=== PATIENT | male | born 1985 ===

== ENCOUNTER 2019-09-03 17:22 | Inpatient (IN) ==
[2019-09-03] MEDS ORDERED: HYDROmorphone 2 MG/1 ML VIAL IV STA ×2 (17:46→18:30)
[2019-09-03] MEDS ORDERED: ONDANSETRON 4 MG/2 ML VIAL ONE ×2 (17:46→21:42)
[2019-09-03] MEDS ORDERED: DIPHTHERIA/TETANUS ADULT VACCINE 0.5 ML SYRINGE IM ONE (17:46)
[2019-09-03 17:56] LABS: Basophils % 0.3 % (0.0-0.8); Eosinophils # 0.2 10*3/uL (0.0-0.87); Eosinophils % 1.5 % (0.00-10.9); Hematocrit 42.9 VOL% (42.0-52.0); Hemoglobin 14.2 GM/DL (14.0-18.0); Immature Granulocytes % 0.4 %; Immature Granulocytes Absolute 0.06 #; Lymphocytes # 2.1 10*3/uL (1.4-4.0); Lymphocytes % 14.3 % (21.2-54.2); Mean Corpuscular HGB Conc 33.1 GM/DL (32-36); Mean Corpuscular Volume 90.5 FL (87-102); Monocytes % 5.5 % (1.7-12.7); Platelet Count 258 T/CUMM (130-400); Red Blood Count 4.74 MC/CUMM (3.8-5.5); Red Cell Distribution Width 12.5 % (9.3-17.3); White Blood Count 14.6 T/CUMM (4-12)
[2019-09-03] MEDS ORDERED: ONDANSETRON 4 MG/2 ML VIAL IV STA (17:58)
[2019-09-03 18:13] LABS: Alanine Aminotransferase 61 U/L (16-61); Albumin 3.8 G/DL (3.4-5.0); Alkaline Phosphatase 93 U/L (45-117); Amylase 34 U/L (25-115); Aspartate Amino Transferase 39 U/L (0-37); Blood Urea Nitrogen 21 MG/DL (7-18); Calcium 9.1 MG/DL (8.5-10.1); Estimated Glom Filtration Rate 122 ML/MIN; Glucose 245 MG/DL (74-106); Osmolality,Calculated 280.1 MOS/KG (273-304); Total Protein 7.4 G/DL (6.4-8.3)
[2019-09-03 18:15] LABS: INR 0.9; Partial Thromboplastin Time 23.1 SECS (20.8-36.0)
[2019-09-03] MEDS ORDERED: GENTAMICIN INJ 120 MG in SODIUM CHLORIDE 0.9% 100 ML IV STA (18:26)
[2019-09-03] MEDS ORDERED: GENTAMICIN 80 MG/2 ML VIAL ONE (18:50)
[2019-09-03] MEDS: LACTATED RINGERS 1,000 ML IV SCH ×2 (19:25→20:30)
[2019-09-03] MEDS ORDERED: BACITRACIN OINT 0.9 GM PACK TOP ONE (20:53)
[2019-09-03] MEDS ORDERED: HYDROmorphone 2 MG/1 ML VIAL ONE (21:10)
[2019-09-03] MEDS ORDERED: propofoL 200 MG/20 ML VIAL IV ONE (21:41)
[2019-09-03] MEDS ORDERED: SEVOFLURANE 1 UNIT/15 MINUTE INH ONE (21:42)
[2019-09-03] MEDS ORDERED: SUCCINYLCHOLINE 200 MG/10 ML VIAL ONE (21:42)
[2019-09-03] MEDS ORDERED: LACTATED RINGERS 1,000 ML IV ONE (21:42)
[2019-09-03] MEDS ORDERED: LIDOCAINE 2% 5 ML VIAL ONE (21:42)
[2019-09-03] MEDS ORDERED: MIDAZOLAM 2 MG/2 ML VIAL ONE (21:42)
[2019-09-03] MEDS ORDERED: ROCURONIUM 100 MG/10 ML VIAL IV ONE (21:42)
[2019-09-03] MEDS ORDERED: fentaNYL 250 MCG/5 ML VIAL ONE ×2 (21:42)
[2019-09-03] MEDS ORDERED: ALBUTEROL INHALER 8 GM INH ONE (21:43)
[2019-09-03] MEDS ORDERED: diphenhydrAMINE CAP 25 MG CAPSULE PO PRN (21:46)
[2019-09-03] MEDS ORDERED: MAGNESIUM HYDROXIDE SUSP 30 ML UDCUP PO PRN (21:46)
[2019-09-03] MEDS ORDERED: MORPHINE 4 MG/1 ML VIAL IV PRN (21:46)
[2019-09-03] MEDS: MORPHINE 4 MG/1 ML VIAL IV PRN (23:52)
[2019-09-04] MEDS: KETOROLAC 30 MG/1 ML VIAL IV PRN ×2 (01:24→13:44)
[2019-09-04] MEDS: ceFAZolin 2,000 MG in PREMIX 1 EACH IV SCH ×3 (02:47→20:58)
[2019-09-04] MEDS: LACTATED RINGERS 1,000 ML IV SCH (02:54)
[2019-09-04] MEDS ORDERED: GENTAMICIN INJ 120 MG in PREMIX 1 EACH IV SCH (03:00)
[2019-09-04 06:07] LABS: Basophils % 0.2 % (0.0-0.8); Eosinophils % 0.2 % (0.00-10.9); Hematocrit 36.9 VOL% (42.0-52.0); Hemoglobin 11.8 GM/DL (14.0-18.0); Immature Granulocytes % 0.5 %; Immature Granulocytes Absolute 0.09 #; Lymphocytes # 2.2 10*3/uL (1.4-4.0); Lymphocytes % 12.9 % (21.2-54.2); Mean Corpuscular Volume 93.2 FL (87-102); Mean Platelet Volume 10.2 FL (9.6-12.0); Monocytes % 6.4 % (1.7-12.7); Neutrophils % 79.8 % (38.7-73.9); Platelet Count 230 T/CUMM (130-400); Red Blood Count 3.96 MC/CUMM (3.8-5.5); Red Cell Distribution Width 12.4 % (9.3-17.3)
[2019-09-04 06:30] LABS: Calcium 8.2 MG/DL (8.5-10.1)
[2019-09-04] MEDS: MORPHINE 4 MG/1 ML VIAL IV PRN (06:42)
[2019-09-04] MEDS ORDERED: DEXTROSE 10% 250 ML BAG IV PRN (08:28)
[2019-09-04] MEDS ORDERED: GLUCAGON 1 MG VIAL IM PRN (08:28)
[2019-09-04] MEDS ORDERED: GENTAMICIN INJ 360 MG in SODIUM CHLORIDE 0.9% 100 ML IV ONE (10:00)
[2019-09-04] MEDS: INSULIN LISPRO 100 UNIT/ML SUBCUT SCH ×3 (13:41→20:51)
[2019-09-04] MEDS: HYDROmorphone 2 MG/1 ML VIAL IV PRN ×3 (15:07→20:50)
[2019-09-04] MEDS: FONDAPARINUX 2.5 MG/0.5 ML SYRINGE SUBCUT SCH (15:32)
[2019-09-05] MEDS: HYDROmorphone 2 MG/1 ML VIAL IV PRN ×3 (00:21→08:17)
[2019-09-05] MEDS: ceFAZolin 2,000 MG in PREMIX 1 EACH IV SCH ×3 (05:00→21:19)
[2019-09-05] MEDS ORDERED: NALOXONE 0.4 MG/ML VIAL IV PRN ×2 (08:10→10:11)
[2019-09-05] MEDS: INSULIN LISPRO 100 UNIT/ML SUBCUT SCH ×4 (08:24→21:19)
[2019-09-05] MEDS ORDERED: MORPHINE PCA 30 MG/30 ML SYRINGE IV SCH (08:30)
[2019-09-05] MEDS ORDERED: DOCUSATE SODIUM 100 MG CAPSULE PO PRN (09:27)
[2019-09-05] MEDS: HYDROmorphone PCA 30 MG/30 ML SYRINGE IV SCH (10:44)
[2019-09-05] MEDS: GENTAMICIN INJ 480 MG in SODIUM CHLORIDE 0.9% 100 ML IV SCH (12:17)
[2019-09-05] MEDS: FONDAPARINUX 2.5 MG/0.5 ML SYRINGE SUBCUT SCH (16:50)
[2019-09-06] MEDS: LACTATED RINGERS 1,000 ML IV SCH ×4 (00:55→15:49)
[2019-09-06] MEDS: ceFAZolin 2,000 MG in PREMIX 1 EACH IV SCH ×2 (05:12→18:18)
[2019-09-06] MEDS ORDERED: ROPIVACAINE 0.5% 30 ML VIAL ONE (08:18)
[2019-09-06] MEDS: INSULIN LISPRO 100 UNIT/ML SUBCUT SCH ×4 (09:54→21:33)
[2019-09-06] MEDS: PANTOPRAZOLE 40 MG TABLET PO SCH (09:56)
[2019-09-06] MEDS ORDERED: LIDOCAINE 2% 5 ML VIAL ONE (09:57)
[2019-09-06] MEDS ORDERED: fentaNYL 100 MCG/2 ML VIAL ONE (09:57)
[2019-09-06] MEDS ORDERED: propofoL 200 MG/20 ML VIAL IV ONE (09:57)
[2019-09-06] MEDS ORDERED: DESFLURANE 1 UNIT/15 MINUTE INH ONE (09:57)
[2019-09-06] MEDS ORDERED: GLYCOPYRROLATE 0.4 MG/2 ML VIAL ONE (09:58)
[2019-09-06] MEDS ORDERED: MIDAZOLAM 2 MG/2 ML VIAL ONE (09:58)
[2019-09-06] MEDS ORDERED: NEOSTIGMINE 10 MG/10 ML VIAL ONE (09:58)
[2019-09-06] MEDS ORDERED: LACTATED RINGERS 1,000 ML IV ONE (09:58)
[2019-09-06] MEDS ORDERED: ONDANSETRON 4 MG/2 ML VIAL ONE (09:58)
[2019-09-06] MEDS ORDERED: SUCCINYLCHOLINE 200 MG/10 ML VIAL ONE (09:58)
[2019-09-06] MEDS ORDERED: ROCURONIUM 100 MG/10 ML VIAL IV ONE (09:58)
[2019-09-06] MEDS ORDERED: LABETALOL 20 MG/4 ML SYRINGE IV ONE (10:08)
[2019-09-06] MEDS: HYDROmorphone PCA 30 MG/30 ML SYRINGE IV SCH (15:49)
[2019-09-06] MEDS: GENTAMICIN INJ 480 MG in SODIUM CHLORIDE 0.9% 100 ML IV SCH (18:18)
[2019-09-06] MEDS: FONDAPARINUX 2.5 MG/0.5 ML SYRINGE SUBCUT SCH (21:34)
[2019-09-07] MEDS: ceFAZolin 2,000 MG in PREMIX 1 EACH IV SCH ×3 (02:59→17:34)
[2019-09-07 05:33] LABS: Basophils # 0.1 10*3/uL (0.0-0.2); Basophils % 0.3 % (0.0-0.8); Eosinophils # 0.2 10*3/uL (0.0-0.87); Eosinophils % 1.2 % (0.00-10.9); Hematocrit 33.8 VOL% (42.0-52.0); Immature Granulocytes % 0.6 %; Immature Granulocytes Absolute 0.11 #; Lymphocytes # 2.6 10*3/uL (1.4-4.0); Lymphocytes % 14.9 % (21.2-54.2); Mean Corpuscular HGB Conc 32.5 GM/DL (32-36); Mean Corpuscular Volume 91.4 FL (87-102); Monocytes % 10.8 % (1.7-12.7); Neutrophils % 72.2 % (38.7-73.9); Platelet Count 352 T/CUMM (130-400); Red Cell Distribution Width 12.5 % (9.3-17.3); White Blood Count 17.1 T/CUMM (4-12)
[2019-09-07 05:53] LABS: Calcium 9.5 MG/DL (8.5-10.1); Osmolality,Calculated 264.8 MOS/KG (273-304)
[2019-09-07] MEDS: PANTOPRAZOLE 40 MG TABLET PO SCH (08:19)
[2019-09-07] MEDS: INSULIN LISPRO 100 UNIT/ML SUBCUT SCH ×4 (08:20→21:13)
[2019-09-07] MEDS ORDERED: INSULIN GLARGINE 100 UNIT/ML SUBCUT SCH (09:30)
[2019-09-07] MEDS: LACTATED RINGERS 1,000 ML IV SCH (12:49)
[2019-09-07] MEDS: GENTAMICIN INJ 480 MG in SODIUM CHLORIDE 0.9% 100 ML IV SCH (16:27)
[2019-09-07] MEDS: HYDROmorphone PCA 30 MG/30 ML SYRINGE IV SCH (16:35)
[2019-09-07] MEDS: FONDAPARINUX 2.5 MG/0.5 ML SYRINGE SUBCUT SCH (21:13)
[2019-09-08] MEDS: ceFAZolin 2,000 MG in PREMIX 1 EACH IV SCH ×3 (01:47→18:52)
[2019-09-08 04:53] LABS: Calcium 9.2 MG/DL (8.5-10.1); Osmolality,Calculated 269.5 MOS/KG (273-304)
[2019-09-08 05:09] LABS: Basophils % 0.3 % (0.0-0.8); Eosinophils # 0.3 10*3/uL (0.0-0.87); Eosinophils % 2.8 % (0.00-10.9); Hematocrit 32.7 VOL% (42.0-52.0); Hemoglobin 10.4 GM/DL (14.0-18.0); Immature Granulocytes % 0.7 %; Immature Granulocytes Absolute 0.08 #; Lymphocytes # 1.8 10*3/uL (1.4-4.0); Lymphocytes % 14.2 % (21.2-54.2); Mean Corpuscular HGB Conc 31.8 GM/DL (32-36); Mean Corpuscular Volume 92.6 FL (87-102); Mean Platelet Volume 9.6 FL (9.6-12.0); Monocytes % 10.6 % (1.7-12.7); NRBC # 0.02 10*3/uL; Neutrophils % 71.4 % (38.7-73.9); Platelet Count 395 T/CUMM (130-400); Red Blood Count 3.53 MC/CUMM (3.8-5.5); Red Cell Distribution Width 12.5 % (9.3-17.3); White Blood Count 12.3 T/CUMM (4-12)
[2019-09-08] MEDS ORDERED: INSULIN GLARGINE 100 UNIT/ML SUBCUT SCH (07:38)
[2019-09-08] MEDS: metFORMIN 500 MG TABLET PO SCH (09:17)
[2019-09-08] MEDS: PANTOPRAZOLE 40 MG TABLET PO SCH (09:18)
[2019-09-08] MEDS: INSULIN LISPRO 100 UNIT/ML SUBCUT SCH ×4 (09:20→20:19)
[2019-09-08] MEDS: GENTAMICIN INJ 480 MG in SODIUM CHLORIDE 0.9% 100 ML IV SCH ×2 (17:47→18:48)
[2019-09-08] MEDS: HYDROmorphone 2 MG/1 ML VIAL IV PRN ×2 (19:41→22:29)
[2019-09-08] MEDS: FONDAPARINUX 2.5 MG/0.5 ML SYRINGE SUBCUT SCH (20:19)
[2019-09-09] MEDS: HYDROmorphone 2 MG/1 ML VIAL IV PRN ×10 (00:42→22:19)
[2019-09-09] MEDS: ceFAZolin 2,000 MG in PREMIX 1 EACH IV SCH ×3 (03:32→18:18)
[2019-09-09 05:16] LABS: Basophils % 0.3 % (0.0-0.8); Eosinophils # 0.3 10*3/uL (0.0-0.87); Eosinophils % 2.6 % (0.00-10.9); Hematocrit 33.4 VOL% (42.0-52.0); Hemoglobin 10.7 GM/DL (14.0-18.0); Immature Granulocytes % 0.4 %; Immature Granulocytes Absolute 0.04 #; Lymphocytes # 1.7 10*3/uL (1.4-4.0); Lymphocytes % 15.7 % (21.2-54.2); Mean Corpuscular Volume 92.5 FL (87-102); Mean Platelet Volume 9.3 FL (9.6-12.0); Monocytes % 10.4 % (1.7-12.7); NRBC # 0.02 10*3/uL; Neutrophils % 70.6 % (38.7-73.9); Platelet Count 459 T/CUMM (130-400); Red Blood Count 3.61 MC/CUMM (3.8-5.5); Red Cell Distribution Width 12.2 % (9.3-17.3); White Blood Count 10.9 T/CUMM (4-12)
[2019-09-09 05:42] LABS: Calcium 9.2 MG/DL (8.5-10.1); Osmolality,Calculated 272.4 MOS/KG (273-304)
[2019-09-09] MEDS: INSULIN LISPRO 100 UNIT/ML SUBCUT SCH ×4 (08:32→20:15)
[2019-09-09] MEDS: metFORMIN 500 MG TABLET PO SCH (08:32)
[2019-09-09] MEDS: INSULIN GLARGINE 100 UNIT/ML SUBCUT SCH (09:03)
[2019-09-09] MEDS: POLYETHYLENE GLYCOL POWDER 17 GM PACK PO SCH (09:06)
[2019-09-09] MEDS: PANTOPRAZOLE 40 MG TABLET PO SCH (09:06)
[2019-09-09] MEDS ORDERED: ONDANSETRON 4 MG/2 ML VIAL IV PRN (09:39)
[2019-09-09] MEDS: GENTAMICIN INJ 480 MG in SODIUM CHLORIDE 0.9% 100 ML IV SCH (17:22)
[2019-09-09] MEDS: FONDAPARINUX 2.5 MG/0.5 ML SYRINGE SUBCUT SCH (20:16)
[2019-09-10] MEDS: HYDROmorphone 2 MG/1 ML VIAL IV PRN ×8 (00:40→23:56)
[2019-09-10] MEDS: LACTATED RINGERS 1,000 ML IV SCH ×2 (01:07→10:32)
[2019-09-10] MEDS: ceFAZolin 2,000 MG in PREMIX 1 EACH IV SCH ×3 (02:54→17:47)
[2019-09-10 05:38] LABS: Basophils % 0.4 % (0.0-0.8); Eosinophils # 0.3 10*3/uL (0.0-0.87); Eosinophils % 2.9 % (0.00-10.9); Hematocrit 32.1 VOL% (42.0-52.0); Hemoglobin 10.5 GM/DL (14.0-18.0); Immature Granulocytes % 0.5 %; Immature Granulocytes Absolute 0.06 #; Lymphocytes # 1.7 10*3/uL (1.4-4.0); Lymphocytes % 15.4 % (21.2-54.2); Mean Corpuscular HGB Conc 32.7 GM/DL (32-36); Mean Corpuscular Volume 90.7 FL (87-102); Mean Platelet Volume 9.2 FL (9.6-12.0); Neutrophils % 70.8 % (38.7-73.9); Platelet Count 507 T/CUMM (130-400); Red Blood Count 3.54 MC/CUMM (3.8-5.5); Red Cell Distribution Width 12.1 % (9.3-17.3); White Blood Count 10.9 T/CUMM (4-12)
[2019-09-10 05:51] LABS: Calcium 9.1 MG/DL (8.5-10.1); Osmolality,Calculated 272.4 MOS/KG (273-304)
[2019-09-10] MEDS: metFORMIN 500 MG TABLET PO SCH ×2 (07:35→17:08)
[2019-09-10] MEDS: INSULIN LISPRO 100 UNIT/ML SUBCUT SCH ×4 (07:35→21:46)
[2019-09-10] MEDS ORDERED: SILVER SULFADIAZINE 1% CREAM 400 GM JAR TOP ONE (07:59)
[2019-09-10] MEDS: INSULIN GLARGINE 100 UNIT/ML SUBCUT SCH (08:19)
[2019-09-10] MEDS: PANTOPRAZOLE 40 MG TABLET PO SCH (08:19)
[2019-09-10] MEDS: POLYETHYLENE GLYCOL POWDER 17 GM PACK PO SCH (08:19)
[2019-09-10] MEDS ORDERED: ONDANSETRON 4 MG/2 ML VIAL ONE (08:41)
[2019-09-10] MEDS ORDERED: LIDOCAINE 2% 5 ML VIAL ONE (08:41)
[2019-09-10] MEDS ORDERED: fentaNYL 100 MCG/2 ML VIAL ONE (08:41)
[2019-09-10] MEDS ORDERED: MIDAZOLAM 2 MG/2 ML VIAL ONE (08:41)
[2019-09-10] MEDS ORDERED: propofoL 200 MG/20 ML VIAL IV ONE (08:41)
[2019-09-10] MEDS ORDERED: SEVOFLURANE 1 UNIT/15 MINUTE INH ONE (08:41)
[2019-09-10] MEDS: GENTAMICIN INJ 480 MG in SODIUM CHLORIDE 0.9% 100 ML IV SCH (17:08)
[2019-09-10] MEDS: FONDAPARINUX 2.5 MG/0.5 ML SYRINGE SUBCUT SCH (21:35)
[2019-09-11] MEDS: ceFAZolin 2,000 MG in PREMIX 1 EACH IV SCH ×3 (01:27→18:16)
[2019-09-11] MEDS: HYDROmorphone 2 MG/1 ML VIAL IV PRN ×6 (03:14→23:15)
[2019-09-11] MEDS: INSULIN LISPRO 100 UNIT/ML SUBCUT SCH ×4 (07:59→21:07)
[2019-09-11] MEDS: metFORMIN 500 MG TABLET PO SCH ×2 (08:42→17:26)
[2019-09-11] MEDS: PANTOPRAZOLE 40 MG TABLET PO SCH (08:42)
[2019-09-11] MEDS: POLYETHYLENE GLYCOL POWDER 17 GM PACK PO SCH (08:46)
[2019-09-11] MEDS: INSULIN GLARGINE 100 UNIT/ML SUBCUT SCH (08:48)
[2019-09-11 08:49] LABS: Basophils % 0.4 % (0.0-0.8); Eosinophils # 0.4 10*3/uL (0.0-0.87); Eosinophils % 3.2 % (0.00-10.9); Hematocrit 34.5 VOL% (42.0-52.0); Hemoglobin 11.1 GM/DL (14.0-18.0); Immature Granulocytes % 0.6 %; Immature Granulocytes Absolute 0.07 #; Lymphocytes # 1.8 10*3/uL (1.4-4.0); Mean Corpuscular HGB Conc 32.2 GM/DL (32-36); Mean Corpuscular Volume 92.5 FL (87-102); Mean Platelet Volume 8.9 FL (9.6-12.0); Neutrophils % 70.8 % (38.7-73.9); Platelet Count 570 T/CUMM (130-400); Red Blood Count 3.73 MC/CUMM (3.8-5.5); Red Cell Distribution Width 12.3 % (9.3-17.3); White Blood Count 11.4 T/CUMM (4-12)
[2019-09-11 09:03] LABS: Calcium 9.1 MG/DL (8.5-10.1); Osmolality,Calculated 272.2 MOS/KG (273-304)
[2019-09-11] MEDS: GENTAMICIN INJ 480 MG in SODIUM CHLORIDE 0.9% 100 ML IV SCH (16:37)
[2019-09-11] MEDS: FONDAPARINUX 2.5 MG/0.5 ML SYRINGE SUBCUT SCH (20:05)
[2019-09-12] MEDS: HYDROmorphone 2 MG/1 ML VIAL IV PRN ×3 (01:35→09:07)
[2019-09-12] MEDS: ceFAZolin 2,000 MG in PREMIX 1 EACH IV SCH ×2 (01:37→13:08)
[2019-09-12 05:51] LABS: Basophils % 0.2 % (0.0-0.8); Eosinophils # 0.4 10*3/uL (0.0-0.87); Eosinophils % 2.5 % (0.00-10.9); Hemoglobin 10.7 GM/DL (14.0-18.0); Immature Granulocytes % 0.5 %; Immature Granulocytes Absolute 0.08 #; Lymphocytes # 2.9 10*3/uL (1.4-4.0); Lymphocytes % 19.1 % (21.2-54.2); Mean Corpuscular HGB Conc 32.4 GM/DL (32-36); Mean Corpuscular Volume 90.7 FL (87-102); Mean Platelet Volume 9.1 FL (9.6-12.0); Neutrophils % 69.7 % (38.7-73.9); Platelet Count 587 T/CUMM (130-400); Red Blood Count 3.64 MC/CUMM (3.8-5.5); Red Cell Distribution Width 12.2 % (9.3-17.3); White Blood Count 15.3 T/CUMM (4-12)
[2019-09-12 06:04] LABS: Calcium 9.4 MG/DL (8.5-10.1); Osmolality,Calculated 275.1 MOS/KG (273-304)
[2019-09-12] MEDS: INSULIN LISPRO 100 UNIT/ML SUBCUT SCH ×2 (08:43→13:07)
[2019-09-12] MEDS: metFORMIN 500 MG TABLET PO SCH (09:11)
[2019-09-12] MEDS: INSULIN GLARGINE 100 UNIT/ML SUBCUT SCH (09:11)
[2019-09-12] MEDS: PANTOPRAZOLE 40 MG TABLET PO SCH (09:11)
[2019-09-12] MEDS: POLYETHYLENE GLYCOL POWDER 17 GM PACK PO SCH (09:25)
[2019-09-12 11:25] VITALS: BP 137/80
== END 2019-09-12 13:25 | disposition home health service (06) | DRG 492 ==
LOC: EDBD → EDUNIT# → N.ED 17:22 → N.EDINP 18:37 → N.3E 18:48
PROVIDERS: ADMIT Orthopaedic Surgery; ATTEND Orthopaedic Surgery

== ENCOUNTER 2019-11-13 07:57 | Inpatient (IN) ==
[2019-11-13] MEDS ORDERED: DIAZEPAM 5 MG TABLET PO ONE (08:17)
[2019-11-13] MEDS ORDERED: FAMOTIDINE 20 MG TABLET PO ONE (08:17)
[2019-11-13] MEDS ORDERED: LACTATED RINGERS 1,000 ML IV SCH (08:30)
[2019-11-13 08:31] LABS: Basophils % 0.2 % (0.0-0.8); Eosinophils # 0.2 10*3/uL (0.0-0.87); Eosinophils % 1.8 % (0.00-10.9); Hematocrit 39.4 VOL% (42.0-52.0); Hemoglobin 13.1 GM/DL (14.0-18.0); Immature Granulocytes % 0.2 %; Immature Granulocytes Absolute 0.03 #; Lymphocytes # 2.4 10*3/uL (1.4-4.0); Lymphocytes % 18.3 % (21.2-54.2); Mean Corpuscular HGB Conc 33.2 GM/DL (32-36); Mean Corpuscular Volume 86.6 FL (87-102); Mean Platelet Volume 9.4 FL (9.6-12.0); Neutrophils % 73.5 % (38.7-73.9); Platelet Count 521 T/CUMM (130-400); Red Blood Count 4.55 MC/CUMM (3.8-5.5); White Blood Count 13.2 T/CUMM (4-12)
[2019-11-13 08:58] LABS: Alanine Aminotransferase 37 U/L (16-61); Albumin 3.7 G/DL (3.4-5.0); Alkaline Phosphatase 181 U/L (45-117); Aspartate Amino Transferase 15 U/L (0-37); Bilirubin,Total < 0.39 MG/DL (0.2-1.0); Blood Urea Nitrogen 18 MG/DL (7-18); Calcium 9.5 MG/DL (8.5-10.1); Estimated Glom Filtration Rate 120 ML/MIN; Glucose 305 MG/DL (74-106); Osmolality,Calculated 278.4 MOS/KG (273-304); Total Protein 9.2 G/DL (6.4-8.3)
[2019-11-13] MEDS ORDERED: FAMOTIDINE 20 MG TABLET ONE (09:11)
[2019-11-13] MEDS ORDERED: DIAZEPAM 5 MG TABLET ONE (09:11)
[2019-11-13] MEDS ORDERED: oxyCODONE/ACETAMINOPHEN 5-325 MG TABLET PO STA (09:22)
[2019-11-13] MEDS ORDERED: oxyCODONE/ACETAMINOPHEN 5-325 MG TABLET ONE (09:29)
[2019-11-13 09:34] LABS: Sedimentation Rate-Westergren 32 MM/HR (0-15)
[2019-11-13] MEDS ORDERED: BACITRACIN OINT 0.9 GM PACK TOP ONE (11:46)
[2019-11-13] MEDS ORDERED: BUPIVACAINE MPF 0.5% /EPI 30 ML VIAL ONE (11:47)
[2019-11-13] MEDS ORDERED: DEXAMETHASONE 4 MG/1 ML VIAL ONE ×2 (11:47→13:30)
[2019-11-13] MEDS ORDERED: AMPICILLIN 2,000 MG VIAL ONE (12:30)
[2019-11-13] MEDS ORDERED: DEXTROSE 50% 25 GM/50 ML VIAL IV PRN (13:23)
[2019-11-13] MEDS ORDERED: GLUCAGON 1 MG VIAL IM PRN (13:23)
[2019-11-13] MEDS ORDERED: NALOXONE 0.4 MG/ML VIAL IV PRN (13:25)
[2019-11-13] MEDS ORDERED: KETOROLAC 30 MG/1 ML VIAL IV PRN (13:27)
[2019-11-13] MEDS ORDERED: diphenhydrAMINE CAP 25 MG CAPSULE PO PRN (13:27)
[2019-11-13] MEDS ORDERED: MAGNESIUM HYDROXIDE SUSP 30 ML UDCUP PO PRN (13:27)
[2019-11-13] MEDS ORDERED: ONDANSETRON 4 MG/2 ML VIAL IV PRN ×2 (13:27→13:42)
[2019-11-13] MEDS ORDERED: SEVOFLURANE 1 UNIT/15 MINUTE INH ONE (13:29)
[2019-11-13] MEDS ORDERED: propofoL 200 MG/20 ML VIAL IV ONE (13:29)
[2019-11-13] MEDS ORDERED: fentaNYL 100 MCG/2 ML VIAL ONE (13:30)
[2019-11-13] MEDS ORDERED: MIDAZOLAM 2 MG/2 ML VIAL ONE (13:30)
[2019-11-13] MEDS ORDERED: ONDANSETRON 4 MG/2 ML VIAL ONE ×2 (13:30→13:33)
[2019-11-13] MEDS ORDERED: HYDROmorphone 2 MG/1 ML VIAL ONE (13:33)
[2019-11-13] MEDS ORDERED: HYDROmorphone PCA 30 MG/30 ML SYRINGE IV ONE (13:44)
[2019-11-13] MEDS: HYDROmorphone PCA 30 MG/30 ML SYRINGE IV SCH (13:50)
[2019-11-13] MEDS: HYDROmorphone 2 MG/1 ML VIAL IV PRN ×4 (14:20→14:35)
[2019-11-13] MEDS: LACTATED RINGERS 1,000 ML IV SCH ×2 (15:47→22:17)
[2019-11-13] MEDS: metFORMIN 500 MG TABLET PO SCH (17:35)
[2019-11-13] MEDS: INSULIN LISPRO 100 UNIT/ML SUBCUT SCH ×2 (17:35→22:03)
[2019-11-13] MEDS: CIPROFLOXACIN 500 MG TABLET PO SCH (22:03)
[2019-11-13] MEDS: oxyCODONE/ACETAMINOPHEN 5-325 MG TABLET PO PRN (22:18)
[2019-11-13] MEDS: AMPICILLIN INJ 2,000 MG in SODIUM CHLORIDE 0.9% 100 ML IV SCH (22:34)
[2019-11-14] MEDS: AMPICILLIN INJ 2,000 MG in SODIUM CHLORIDE 0.9% 100 ML IV SCH ×3 (06:14→20:59)
[2019-11-14 06:59] LABS: Calcium 9.1 MG/DL (8.5-10.1); Osmolality,Calculated 273.4 MOS/KG (273-304)
[2019-11-14] MEDS: INSULIN LISPRO 100 UNIT/ML SUBCUT SCH ×4 (08:19→22:25)
[2019-11-14] MEDS: APIXABAN 2.5 MG TABLET PO SCH ×2 (08:20→22:25)
[2019-11-14] MEDS: LISINOPRIL/HCTZ 20-25 MG TABLET PO SCH (08:20)
[2019-11-14] MEDS: INSULIN GLARGINE 100 UNIT/ML SUBCUT SCH (08:20)
[2019-11-14] MEDS: metFORMIN 500 MG TABLET PO SCH ×2 (08:20→17:11)
[2019-11-14] MEDS: CIPROFLOXACIN 500 MG TABLET PO SCH ×2 (08:21→20:59)
[2019-11-14] MEDS: oxyCODONE/ACETAMINOPHEN 5-325 MG TABLET PO PRN ×2 (13:30→20:59)
[2019-11-14] MEDS: HYDROmorphone PCA 30 MG/30 ML SYRINGE IV SCH (16:03)
[2019-11-14] MEDS: LACTATED RINGERS 1,000 ML IV SCH (21:03)
[2019-11-15] MEDS: oxyCODONE/ACETAMINOPHEN 5-325 MG TABLET PO PRN ×3 (00:40→20:29)
[2019-11-15] MEDS ORDERED: DIAZEPAM 5 MG TABLET PO ONE (06:00)
[2019-11-15] MEDS ORDERED: FAMOTIDINE 20 MG TABLET PO ONE (06:00)
[2019-11-15] MEDS: AMPICILLIN INJ 2,000 MG in SODIUM CHLORIDE 0.9% 100 ML IV SCH ×3 (06:30→20:30)
[2019-11-15] MEDS: LACTATED RINGERS 1,000 ML IV SCH ×3 (06:33→21:34)
[2019-11-15] MEDS: INSULIN LISPRO 100 UNIT/ML SUBCUT SCH ×4 (08:00→20:30)
[2019-11-15] MEDS: metFORMIN 500 MG TABLET PO SCH ×2 (09:56→17:20)
[2019-11-15] MEDS: CIPROFLOXACIN 500 MG TABLET PO SCH ×2 (09:56→20:29)
[2019-11-15] MEDS: LISINOPRIL/HCTZ 20-25 MG TABLET PO SCH (09:56)
[2019-11-15] MEDS: INSULIN GLARGINE 100 UNIT/ML SUBCUT SCH (11:27)
[2019-11-15] MEDS ORDERED: BUPIVACAINE 0.5% 50 ML VIAL ONE (12:26)
[2019-11-15] MEDS ORDERED: HYDROmorphone 2 MG/1 ML VIAL ONE (14:29)
[2019-11-15] MEDS ORDERED: propofoL 200 MG/20 ML VIAL IV ONE (14:31)
[2019-11-15] MEDS ORDERED: MIDAZOLAM 2 MG/2 ML VIAL ONE (14:31)
[2019-11-15] MEDS ORDERED: fentaNYL 100 MCG/2 ML VIAL ONE (14:31)
[2019-11-15] MEDS ORDERED: SEVOFLURANE 1 UNIT/15 MINUTE INH ONE (14:31)
[2019-11-15] MEDS ORDERED: LIDOCAINE 2% 5 ML VIAL ONE (14:31)
[2019-11-15] MEDS ORDERED: ONDANSETRON 4 MG/2 ML VIAL ONE (14:32)
[2019-11-15] MEDS ORDERED: PHENYLEPHRINE 1 MG/10 ML SYRINGE IV ONE (14:32)
[2019-11-15] MEDS ORDERED: LACTATED RINGERS 1,000 ML IV ONE (14:32)
[2019-11-15] MEDS: HYDROmorphone 2 MG/1 ML VIAL IV PRN ×4 (14:45→15:00)
[2019-11-16] MEDS: oxyCODONE/ACETAMINOPHEN 5-325 MG TABLET PO PRN ×5 (02:12→20:59)
[2019-11-16] MEDS: AMPICILLIN INJ 2,000 MG in SODIUM CHLORIDE 0.9% 100 ML IV SCH ×3 (05:11→21:03)
[2019-11-16] MEDS: HYDROmorphone PCA 30 MG/30 ML SYRINGE IV SCH (06:00)
[2019-11-16] MEDS: INSULIN LISPRO 100 UNIT/ML SUBCUT SCH ×4 (09:08→20:58)
[2019-11-16] MEDS: metFORMIN 500 MG TABLET PO SCH ×2 (09:10→16:12)
[2019-11-16] MEDS: CIPROFLOXACIN 500 MG TABLET PO SCH ×2 (09:10→20:59)
[2019-11-16] MEDS: APIXABAN 2.5 MG TABLET PO SCH (09:11)
[2019-11-16] MEDS: LISINOPRIL/HCTZ 20-25 MG TABLET PO SCH (09:11)
[2019-11-16] MEDS: INSULIN GLARGINE 100 UNIT/ML SUBCUT SCH (09:12)
[2019-11-16] MEDS ORDERED: hydrALAZINE 20 MG/1 ML VIAL IV PRN (11:36)
[2019-11-16] MEDS ORDERED: ALUM/MAG/SIMETH/LIDO VISC 1:1 30 ML BOTTLE PO ONE (13:59)
[2019-11-16] MEDS ORDERED: ALUM/MAG/SIMETH/LIDO VISC 1:1 30 ML BOTTLE PO PRN (14:01)
[2019-11-16] MEDS: HYDROmorphone 2 MG/1 ML VIAL IV PRN ×3 (14:50→22:35)
[2019-11-16] MEDS: HEPARIN 5,000 UNIT/1 ML VIAL SUBCUT SCH (16:12)
[2019-11-16] MEDS: ASCORBIC ACID 500 MG TABLET PO SCH (20:59)
[2019-11-16] MEDS: PANTOPRAZOLE 40 MG TABLET PO SCH (20:59)
[2019-11-17] MEDS: HEPARIN 5,000 UNIT/1 ML VIAL SUBCUT SCH ×3 (00:57→16:58)
[2019-11-17] MEDS: oxyCODONE/ACETAMINOPHEN 5-325 MG TABLET PO PRN ×5 (00:57→20:36)
[2019-11-17] MEDS: AMPICILLIN INJ 2,000 MG in SODIUM CHLORIDE 0.9% 100 ML IV SCH ×3 (05:23→21:10)
[2019-11-17] MEDS: HYDROmorphone 2 MG/1 ML VIAL IV PRN ×5 (05:23→22:38)
[2019-11-17] MEDS: CIPROFLOXACIN 500 MG TABLET PO SCH ×2 (08:35→20:36)
[2019-11-17] MEDS: ZINC SULFATE 220 MG CAPSULE PO SCH (08:35)
[2019-11-17] MEDS: PANTOPRAZOLE 40 MG TABLET PO SCH ×2 (08:35→20:36)
[2019-11-17] MEDS: MULTIVITAMIN (BEROCCA) TABLET PO SCH (08:35)
[2019-11-17] MEDS: ASCORBIC ACID 500 MG TABLET PO SCH ×2 (08:35→20:36)
[2019-11-17] MEDS: metFORMIN 500 MG TABLET PO SCH ×2 (08:35→16:57)
[2019-11-17] MEDS: LISINOPRIL/HCTZ 20-25 MG TABLET PO SCH (08:35)
[2019-11-17] MEDS: LINACLOTIDE 145 MCG CAPSULE PO SCH (08:36)
[2019-11-17] MEDS: INSULIN GLARGINE 100 UNIT/ML SUBCUT SCH (08:36)
[2019-11-17] MEDS: INSULIN LISPRO 100 UNIT/ML SUBCUT SCH ×4 (08:36→20:36)
[2019-11-18] MEDS: oxyCODONE/ACETAMINOPHEN 5-325 MG TABLET PO PRN ×3 (01:47→19:40)
[2019-11-18] MEDS: HEPARIN 5,000 UNIT/1 ML VIAL SUBCUT SCH ×3 (01:47→15:59)
[2019-11-18] MEDS: HYDROmorphone 2 MG/1 ML VIAL IV PRN ×5 (03:01→20:55)
[2019-11-18] MEDS: AMPICILLIN INJ 2,000 MG in SODIUM CHLORIDE 0.9% 100 ML IV SCH ×3 (05:55→20:55)
[2019-11-18] MEDS: INSULIN LISPRO 100 UNIT/ML SUBCUT SCH ×4 (07:42→21:00)
[2019-11-18] MEDS: INSULIN GLARGINE 100 UNIT/ML SUBCUT SCH (08:26)
[2019-11-18] MEDS: PANTOPRAZOLE 40 MG TABLET PO SCH ×2 (08:27→20:55)
[2019-11-18] MEDS: metFORMIN 500 MG TABLET PO SCH ×2 (08:27→16:00)
[2019-11-18] MEDS: CIPROFLOXACIN 500 MG TABLET PO SCH ×2 (08:27→20:55)
[2019-11-18] MEDS: ASCORBIC ACID 500 MG TABLET PO SCH ×2 (08:27→20:55)
[2019-11-18] MEDS: MULTIVITAMIN (BEROCCA) TABLET PO SCH (08:28)
[2019-11-18] MEDS: LINACLOTIDE 145 MCG CAPSULE PO SCH (08:28)
[2019-11-18] MEDS: ZINC SULFATE 220 MG CAPSULE PO SCH (08:29)
[2019-11-18] MEDS: LISINOPRIL/HCTZ 20-25 MG TABLET PO SCH (09:27)
[2019-11-19] MEDS: HYDROmorphone 2 MG/1 ML VIAL IV PRN ×10 (00:50→21:30)
[2019-11-19] MEDS: HEPARIN 5,000 UNIT/1 ML VIAL SUBCUT SCH ×2 (02:22→09:06)
[2019-11-19] MEDS: AMPICILLIN INJ 2,000 MG in SODIUM CHLORIDE 0.9% 100 ML IV SCH ×3 (05:23→21:03)
[2019-11-19 05:39] LABS: Basophils % 0.2 % (0.0-0.8); Eosinophils # 0.4 10*3/uL (0.0-0.87); Hematocrit 37.6 VOL% (42.0-52.0); Hemoglobin 12.3 GM/DL (14.0-18.0); Immature Granulocytes % 0.3 %; Immature Granulocytes Absolute 0.04 #; Lymphocytes # 2.9 10*3/uL (1.4-4.0); Lymphocytes % 24.7 % (21.2-54.2); Mean Corpuscular HGB Conc 32.7 GM/DL (32-36); Mean Corpuscular Volume 86.8 FL (87-102); Mean Platelet Volume 9.3 FL (9.6-12.0); Monocytes % 6.5 % (1.7-12.7); Neutrophils % 65.3 % (38.7-73.9); Platelet Count 477 T/CUMM (130-400); Red Blood Count 4.33 MC/CUMM (3.8-5.5); Red Cell Distribution Width 12.9 % (9.3-17.3); White Blood Count 11.6 T/CUMM (4-12)
[2019-11-19 06:31] LABS: Calcium 9.4 MG/DL (8.5-10.1); Osmolality,Calculated 270.2 MOS/KG (273-304)
[2019-11-19] MEDS: INSULIN LISPRO 100 UNIT/ML SUBCUT SCH ×4 (08:49→21:03)
[2019-11-19] MEDS: PANTOPRAZOLE 40 MG TABLET PO SCH ×2 (08:50→21:03)
[2019-11-19] MEDS: metFORMIN 500 MG TABLET PO SCH ×2 (08:50→17:32)
[2019-11-19] MEDS: ASCORBIC ACID 500 MG TABLET PO SCH ×2 (08:50→21:04)
[2019-11-19] MEDS: CIPROFLOXACIN 500 MG TABLET PO SCH ×2 (08:50→21:03)
[2019-11-19] MEDS: LINACLOTIDE 145 MCG CAPSULE PO SCH (08:50)
[2019-11-19] MEDS: INSULIN GLARGINE 100 UNIT/ML SUBCUT SCH (09:05)
[2019-11-19] MEDS ORDERED: BACITRACIN OINT 0.9 GM PACK TOP ONE (11:24)
[2019-11-19] MEDS ORDERED: ONDANSETRON 4 MG/2 ML VIAL ONE (11:46)
[2019-11-19] MEDS ORDERED: HYDROmorphone 2 MG/1 ML VIAL ONE (11:46)
[2019-11-19] MEDS ORDERED: ONDANSETRON 4 MG/2 ML VIAL IV PRN (11:47)
[2019-11-19] MEDS ORDERED: LIDOCAINE 2% 5 ML VIAL ONE (11:49)
[2019-11-19] MEDS ORDERED: MIDAZOLAM 2 MG/2 ML VIAL ONE (11:49)
[2019-11-19] MEDS ORDERED: SEVOFLURANE 1 UNIT/15 MINUTE INH ONE (11:49)
[2019-11-19] MEDS ORDERED: propofoL 200 MG/20 ML VIAL IV ONE (11:49)
[2019-11-19] MEDS ORDERED: SUCCINYLCHOLINE 200 MG/10 ML VIAL ONE (11:50)
[2019-11-19] MEDS ORDERED: fentaNYL 100 MCG/2 ML VIAL ONE (11:50)
[2019-11-19] MEDS ORDERED: ROCURONIUM 100 MG/10 ML VIAL IV ONE (11:50)
[2019-11-19] MEDS ORDERED: LACTATED RINGERS 1,000 ML IV ONE (11:50)
[2019-11-19] MEDS ORDERED: PHENYLEPHRINE 1 MG/10 ML SYRINGE IV ONE (11:50)
[2019-11-19] MEDS: LISINOPRIL/HCTZ 20-25 MG TABLET PO SCH (12:55)
[2019-11-19] MEDS: oxyCODONE/ACETAMINOPHEN 5-325 MG TABLET PO PRN ×2 (12:55→21:04)
[2019-11-19] MEDS: MULTIVITAMIN (BEROCCA) TABLET PO SCH (12:55)
[2019-11-19] MEDS: ZINC SULFATE 220 MG CAPSULE PO SCH (12:56)
[2019-11-19] MEDS: APIXABAN 2.5 MG TABLET PO SCH (21:03)
[2019-11-20] MEDS: HYDROmorphone 2 MG/1 ML VIAL IV PRN (01:28)
[2019-11-20] MEDS: AMPICILLIN INJ 2,000 MG in SODIUM CHLORIDE 0.9% 100 ML IV SCH (05:30)
[2019-11-20 06:10] LABS: Basophils % 0.2 % (0.0-0.8); Eosinophils # 0.2 10*3/uL (0.0-0.87); Eosinophils % 1.7 % (0.00-10.9); Hematocrit 36.3 VOL% (42.0-52.0); Hemoglobin 11.8 GM/DL (14.0-18.0); Immature Granulocytes % 0.4 %; Immature Granulocytes Absolute 0.06 #; Lymphocytes # 2.8 10*3/uL (1.4-4.0); Lymphocytes % 19.7 % (21.2-54.2); Mean Corpuscular HGB Conc 32.5 GM/DL (32-36); Mean Corpuscular Volume 87.1 FL (87-102); Mean Platelet Volume 9.4 FL (9.6-12.0); Monocytes % 6.9 % (1.7-12.7); Neutrophils % 71.1 % (38.7-73.9); Platelet Count 467 T/CUMM (130-400); Red Blood Count 4.17 MC/CUMM (3.8-5.5); White Blood Count 14.4 T/CUMM (4-12)
[2019-11-20 06:29] LABS: Calcium 9.5 MG/DL (8.5-10.1); Osmolality,Calculated 266.7 MOS/KG (273-304)
[2019-11-20 07:08] LABS: Ferritin 180.5 ng/ml (26-388)
[2019-11-20] MEDS: INSULIN LISPRO 100 UNIT/ML SUBCUT SCH (08:05)
[2019-11-20] MEDS: ASCORBIC ACID 500 MG TABLET PO SCH (08:45)
[2019-11-20] MEDS: CIPROFLOXACIN 500 MG TABLET PO SCH (08:45)
[2019-11-20] MEDS: PANTOPRAZOLE 40 MG TABLET PO SCH (08:45)
[2019-11-20] MEDS: APIXABAN 2.5 MG TABLET PO SCH (08:45)
[2019-11-20] MEDS: MULTIVITAMIN (BEROCCA) TABLET PO SCH (08:45)
[2019-11-20] MEDS: LINACLOTIDE 145 MCG CAPSULE PO SCH (08:46)
[2019-11-20] MEDS: LISINOPRIL/HCTZ 20-25 MG TABLET PO SCH (08:46)
[2019-11-20] MEDS: ZINC SULFATE 220 MG CAPSULE PO SCH (08:46)
[2019-11-20] MEDS: INSULIN GLARGINE 100 UNIT/ML SUBCUT SCH (08:46)
[2019-11-20] MEDS: metFORMIN 500 MG TABLET PO SCH (08:46)
[2019-11-20 10:39] VITALS: BP 109/66
== END 2019-11-20 11:10 | disposition home or self-care (01) | DRG 492 ==
LOC: N.OR 07:57 → N.SDSINP 08:00 → N.3E 15:22 → N.2E 11-15 21:48
PROVIDERS: ADMIT Orthopaedic Surgery; ATTEND Orthopaedic Surgery

== ENCOUNTER 2020-02-25 06:15 | Inpatient (IN) ==
[2020-02-21 16:33] LABS: Basophils % 0.2 % (0.0-0.8); Eosinophils # 0.2 10*3/uL (0.0-0.87); Eosinophils % 1.5 % (0.00-10.9); Hematocrit 45.4 VOL% (42.0-52.0); Hemoglobin 14.9 GM/DL (14.0-18.0); Immature Granulocytes % 0.4 %; Immature Granulocytes Absolute 0.05 #; Lymphocytes # 2.8 10*3/uL (1.4-4.0); Lymphocytes % 19.4 % (21.2-54.2); Mean Corpuscular HGB Conc 32.8 GM/DL (32-36); Mean Corpuscular Volume 85.8 FL (87-102); Mean Platelet Volume 10.1 FL (9.6-12.0); Monocytes % 5.4 % (1.7-12.7); Neutrophils % 73.1 % (38.7-73.9); Platelet Count 313 T/CUMM (130-400); Red Blood Count 5.29 MC/CUMM (3.8-5.5); Red Cell Distribution Width 13.2 % (9.3-17.3); White Blood Count 14.2 T/CUMM (4-12)
[2020-02-21 16:49] LABS: Calcium 8.9 MG/DL (8.5-10.1)
[~2020-02-25 06:15] MED LIST: LACTATED RINGERS 1,000 ML IV SCH
[2020-02-25] MEDS ORDERED: DIAZEPAM 5 MG TABLET PO ONE (07:15)
[2020-02-25] MEDS ORDERED: ALBUTEROL 2.5 MG/3 ML NEB RESP TX ONE (07:15)
[2020-02-25] MEDS ORDERED: GABAPENTIN 400 MG CAPSULE PO ONE (07:15)
[2020-02-25] MEDS ORDERED: FAMOTIDINE 20 MG TABLET PO ONE (07:15)
[2020-02-25] MEDS ORDERED: ACETAMINOPHEN 500 MG TABLET PO ONE (07:15)
[2020-02-25] MEDS ORDERED: INSULIN REGULAR 100 UNIT/ML SUBCUT ONE (07:17)
[2020-02-25] MEDS ORDERED: ACETAMINOPHEN 500 MG TABLET ONE (07:22)
[2020-02-25] MEDS ORDERED: FAMOTIDINE 20 MG TABLET ONE (07:22)
[2020-02-25] MEDS ORDERED: DIAZEPAM 5 MG TABLET ONE (07:22)
[2020-02-25] MEDS ORDERED: GABAPENTIN 400 MG CAPSULE ONE (07:22)
[2020-02-25] MEDS ORDERED: TOBRAMYCIN 80 MG/2 ML VIAL ONE (09:07)
[2020-02-25] MEDS ORDERED: BACITRACIN OINT 0.9 GM PACK TOP ONE ×2 (09:07→09:15)
[2020-02-25] MEDS ORDERED: GENTAMICIN 80 MG/2 ML VIAL ONE (09:07)
[2020-02-25] MEDS ORDERED: VANCOMYCIN 1,000 MG VIAL ONE (09:15)
[2020-02-25] MEDS ORDERED: TOBRAMYCIN 1.2 GM VIAL TOP ONE (09:16)
[2020-02-25] MEDS ORDERED: AMPICILLIN 2,000 MG VIAL ONE (10:40)
[2020-02-25] MEDS ORDERED: DEXTROSE 50% 25 GM/50 ML VIAL IV PRN (11:40)
[2020-02-25] MEDS ORDERED: GLUCAGON 1 MG VIAL IM PRN (11:40)
[2020-02-25] MEDS ORDERED: MAGNESIUM HYDROXIDE SUSP 30 ML UDCUP PO PRN (11:43)
[2020-02-25] MEDS ORDERED: ONDANSETRON 4 MG/2 ML VIAL IV PRN ×2 (11:43→12:25)
[2020-02-25] MEDS ORDERED: KETOROLAC 30 MG/1 ML VIAL IV PRN (11:43)
[2020-02-25] MEDS ORDERED: diphenhydrAMINE CAP 25 MG CAPSULE PO PRN (11:43)
[2020-02-25] MEDS ORDERED: SEVOFLURANE 1 UNIT/15 MINUTE INH ONE (11:49)
[2020-02-25] MEDS ORDERED: propofoL 200 MG/20 ML VIAL IV ONE (11:49)
[2020-02-25] MEDS ORDERED: LIDOCAINE 2% 5 ML VIAL ONE (11:49)
[2020-02-25] MEDS ORDERED: MIDAZOLAM 2 MG/2 ML VIAL ONE (11:50)
[2020-02-25] MEDS ORDERED: fentaNYL 100 MCG/2 ML VIAL ONE (11:50)
[2020-02-25] MEDS ORDERED: DEXAMETHASONE 4 MG/1 ML VIAL ONE ×2 (11:50→12:36)
[2020-02-25] MEDS ORDERED: PHENYLEPHRINE 1 MG/10 ML SYRINGE IV ONE (11:50)
[2020-02-25] MEDS ORDERED: LACTATED RINGERS 1,000 ML IV SCH (12:00)
[2020-02-25] MEDS: HYDROmorphone 2 MG/1 ML VIAL IV PRN ×2 (12:30→12:35)
[2020-02-25] MEDS ORDERED: BUPIVACAINE MPF 0.5% /EPI 30 ML VIAL ONE (12:36)
[2020-02-25] MEDS ORDERED: BUPIVACAINE MPF 0.25% 30 ML VIAL ONE (12:36)
[2020-02-25] MEDS: AMPICILLIN INJ 2,000 MG in SODIUM CHLORIDE 0.9% 100 ML IV SCH ×3 (15:03→17:52)
[2020-02-25] MEDS: INSULIN LISPRO 100 UNIT/ML SUBCUT SCH ×2 (16:05→21:16)
[2020-02-25] MEDS: FLUCONAZOLE 200 MG TABLET PO SCH (16:06)
[2020-02-25] MEDS ORDERED: metFORMIN 500 MG TABLET PO SCH (21:00)
[2020-02-25] MEDS: APIXABAN 2.5 MG TABLET PO SCH (21:16)
[2020-02-25] MEDS: CIPROFLOXACIN 500 MG TABLET PO SCH (21:16)
[2020-02-25] MEDS: MORPHINE 4 MG/1 ML VIAL IV PRN (21:19)
[2020-02-26] MEDS: AMPICILLIN INJ 2,000 MG in SODIUM CHLORIDE 0.9% 100 ML IV SCH ×5 (00:02→23:21)
[2020-02-26] MEDS: MORPHINE 4 MG/1 ML VIAL IV PRN ×5 (00:53→21:01)
[2020-02-26 06:28] LABS: Basophils % 0.1 % (0.0-0.8); Hematocrit 40.1 VOL% (42.0-52.0); Hemoglobin 13.4 GM/DL (14.0-18.0); Immature Granulocytes % 0.5 %; Immature Granulocytes Absolute 0.06 #; Lymphocytes # 1.4 10*3/uL (1.4-4.0); Lymphocytes % 10.8 % (21.2-54.2); Mean Corpuscular HGB Conc 33.4 GM/DL (32-36); Mean Corpuscular Volume 85.7 FL (87-102); Mean Platelet Volume 10.8 FL (9.6-12.0); Monocytes % 3.6 % (1.7-12.7); Platelet Count 301 T/CUMM (130-400); Red Blood Count 4.68 MC/CUMM (3.8-5.5); Red Cell Distribution Width 13.1 % (9.3-17.3); White Blood Count 12.5 T/CUMM (4-12)
[2020-02-26 06:56] LABS: Calcium 9.1 MG/DL (8.5-10.1)
[2020-02-26] MEDS: CIPROFLOXACIN 500 MG TABLET PO SCH ×2 (08:24→21:00)
[2020-02-26] MEDS: APIXABAN 2.5 MG TABLET PO SCH ×2 (08:24→21:00)
[2020-02-26] MEDS: INSULIN LISPRO 100 UNIT/ML SUBCUT SCH ×4 (08:25→21:00)
[2020-02-26] MEDS: FLUCONAZOLE 200 MG TABLET PO SCH (08:25)
[2020-02-26] MEDS: INSULIN GLARGINE 100 UNIT/ML SUBCUT SCH (08:26)
[2020-02-26] MEDS ORDERED: INSULIN GLARGINE 100 UNIT/ML SUBCUT SCH (09:00)
[2020-02-26] MEDS: metFORMIN 500 MG TABLET PO SCH (16:20)
[2020-02-27] MEDS: MORPHINE 4 MG/1 ML VIAL IV PRN (02:50)
[2020-02-27] MEDS: AMPICILLIN INJ 2,000 MG in SODIUM CHLORIDE 0.9% 100 ML IV SCH ×2 (05:51→11:30)
[2020-02-27 06:59] LABS: Basophils % 0.2 % (0.0-0.8); Eosinophils # 0.1 10*3/uL (0.0-0.87); Hematocrit 40.3 VOL% (42.0-52.0); Hemoglobin 12.9 GM/DL (14.0-18.0); Immature Granulocytes % 0.5 %; Immature Granulocytes Absolute 0.07 #; Lymphocytes # 3.5 10*3/uL (1.4-4.0); Lymphocytes % 26.9 % (21.2-54.2); Mean Platelet Volume 10.6 FL (9.6-12.0); Monocytes % 5.2 % (1.7-12.7); Neutrophils % 66.2 % (38.7-73.9); Platelet Count 286 T/CUMM (130-400); Red Blood Count 4.58 MC/CUMM (3.8-5.5); Red Cell Distribution Width 13.2 % (9.3-17.3); White Blood Count 13.2 T/CUMM (4-12)
[2020-02-27 07:24] LABS: Calcium 8.7 MG/DL (8.5-10.1); Osmolality,Calculated 287.5 MOS/KG (273-304)
[2020-02-27] MEDS: CIPROFLOXACIN 500 MG TABLET PO SCH (08:57)
[2020-02-27] MEDS: APIXABAN 2.5 MG TABLET PO SCH (08:57)
[2020-02-27] MEDS: metFORMIN 500 MG TABLET PO SCH (08:57)
[2020-02-27] MEDS: FLUCONAZOLE 200 MG TABLET PO SCH (08:57)
[2020-02-27] MEDS: INSULIN LISPRO 100 UNIT/ML SUBCUT SCH ×2 (08:58→11:30)
[2020-02-27] MEDS: INSULIN GLARGINE 100 UNIT/ML SUBCUT SCH (08:58)
[2020-02-27 10:59] VITALS: BP 117/73
[2020-02-27] MEDS ORDERED: INSULIN LISPRO 100 UNIT/ML SUBCUT SCH (12:00)
== END 2020-02-27 13:45 | disposition home or self-care (01) | DRG 494 ==
LOC: N.SDSINP 06:15 → N.OR 06:15 → N.SDSINP 06:16 → N.3E 13:18 → N.OR 02-27 13:45 → N.3E 02-27 14:33
PROVIDERS: ADMIT Orthopaedic Surgery; ATTEND Orthopaedic Surgery

== ENCOUNTER 2020-06-17 05:53 | Inpatient (IN) ==
[2020-06-11 16:14] LABS: Basophils % 0.3 % (0.0-0.8); Eosinophils # 0.6 10*3/uL (0.0-0.87); Eosinophils % 5.1 % (0.00-10.9); Hematocrit 43.1 VOL% (42.0-52.0); Hemoglobin 14.3 GM/DL (14.0-18.0); Immature Granulocytes % 0.3 %; Immature Granulocytes Absolute 0.04 #; Lymphocytes # 2.9 10*3/uL (1.4-4.0); Lymphocytes % 24.7 % (21.2-54.2); Mean Corpuscular HGB Conc 33.2 GM/DL (32-36); Mean Corpuscular Volume 88.7 FL (87-102); Mean Platelet Volume 9.9 FL (9.6-12.0); Monocytes % 5.4 % (1.7-12.7); Neutrophils % 64.2 % (38.7-73.9); Platelet Count 300 T/CUMM (130-400); Red Blood Count 4.86 MC/CUMM (3.8-5.5); White Blood Count 11.9 T/CUMM (4-12)
[2020-06-11 16:28] LABS: Bilirubin,Urine Negative (Negative); Blood, Urine Negative (Negative); Glucose,Urine (UA) >=500 mg/dL (Negative); Ketones,Urine Negative (Negative); Mucus,Urine Few /LPF (Occasional); Nitrite,Urine Negative (Negative); Protein,Urine 30 MG/DL; Squamous Epithelial Cell,Urine Occasional /HPF (0-10); Urine Appearance CLEAR (Clear); Urine Color Yellow (Yellow); Urine Specific Gravity 1.038 (1.001-1.035); Urine Urobilinogen < 2.0 EU/DL (0.2-1.0)
[2020-06-11 16:36] LABS: Calcium 9.3 MG/DL (8.5-10.1); Osmolality,Calculated 283.8 MOS/KG (273-304)
[2020-06-11 17:14] LABS: Sedimentation Rate-Westergren 5 MM/HR (0-15)
[2020-06-17] MEDS ORDERED: ceFAZolin 2,000 MG in PREMIX 1 EACH IV ONE (07:00)
[2020-06-17] MEDS: LACTATED RINGERS 1,000 ML IV SCH ×3 (07:00→15:41)
[2020-06-17] MEDS ORDERED: propofoL 200 MG/20 ML VIAL IV ONE ×2 (10:53→11:55)
[2020-06-17] MEDS ORDERED: LIDOCAINE 2% 5 ML VIAL ONE (10:53)
[2020-06-17] MEDS ORDERED: fentaNYL 100 MCG/2 ML VIAL ONE (10:53)
[2020-06-17] MEDS ORDERED: MIDAZOLAM 2 MG/2 ML VIAL ONE ×2 (10:54→11:54)
[2020-06-17] MEDS ORDERED: DEXAMETHASONE 4 MG/1 ML VIAL ONE (10:56)
[2020-06-17] MEDS ORDERED: LIDOCAINE 1% 5 ML VIAL ONE (10:57)
[2020-06-17] MEDS ORDERED: ROPIVACAINE 0.5% 30 ML VIAL ONE ×2 (10:57→11:10)
[2020-06-17] MEDS ORDERED: ONDANSETRON 4 MG/2 ML VIAL ONE ×2 (12:06→13:07)
[2020-06-17] MEDS ORDERED: HYDROmorphone 2 MG/1 ML VIAL ONE ×2 (12:14→13:07)
[2020-06-17] MEDS ORDERED: PHENYLEPHRINE 1 MG/10 ML SYRINGE IV ONE ×2 (12:16→13:38)
[2020-06-17] MEDS ORDERED: BACITRACIN OINT 0.9 GM PACK TOP ONE (13:03)
[2020-06-17] MEDS ORDERED: HYDROmorphone 2 MG/1 ML VIAL IV PRN ×2 (13:08→13:26)
[2020-06-17] MEDS ORDERED: MEPERIDINE 25 MG/1 ML VIAL IV PRN (13:08)
[2020-06-17] MEDS ORDERED: ONDANSETRON 4 MG/2 ML VIAL IV PRN ×2 (13:08→13:26)
[2020-06-17] MEDS ORDERED: TRANEXAMIC ACID 1,000 MG/10 ML VIAL ONE (13:13)
[2020-06-17] MEDS ORDERED: DEXTROSE 50% 25 GM/50 ML VIAL IV PRN (13:25)
[2020-06-17] MEDS ORDERED: GLUCAGON 1 MG VIAL IM PRN (13:25)
[2020-06-17] MEDS ORDERED: diphenhydrAMINE CAP 25 MG CAPSULE PO PRN (13:26)
[2020-06-17] MEDS ORDERED: MAGNESIUM HYDROXIDE SUSP 30 ML UDCUP PO PRN (13:26)
[2020-06-17] MEDS ORDERED: SEVOFLURANE 1 UNIT/15 MINUTE INH ONE (13:38)
[2020-06-17] MEDS: KETOROLAC 30 MG/1 ML VIAL IV PRN (13:58)
[2020-06-17] MEDS: INSULIN LISPRO 100 UNIT/ML SUBCUT SCH ×3 (15:36→21:26)
[2020-06-17] MEDS: HYDROmorphone 2 MG/1 ML VIAL IV PRN ×3 (17:23→23:43)
[2020-06-17] MEDS: ceFAZolin 2,000 MG in PREMIX 1 EACH IV SCH (20:36)
[2020-06-18] MEDS: HYDROmorphone 2 MG/1 ML VIAL IV PRN ×7 (02:50→21:23)
[2020-06-18] MEDS: LACTATED RINGERS 1,000 ML IV SCH (02:53)
[2020-06-18] MEDS: ceFAZolin 2,000 MG in PREMIX 1 EACH IV SCH (04:29)
[2020-06-18 06:14] LABS: Basophils % 0.1 % (0.0-0.8); Eosinophils # 0.3 10*3/uL (0.0-0.87); Eosinophils % 2.3 % (0.00-10.9); Hematocrit 41.4 VOL% (42.0-52.0); Hemoglobin 13.8 GM/DL (14.0-18.0); Immature Granulocytes % 0.5 %; Immature Granulocytes Absolute 0.07 #; Lymphocytes # 1.9 10*3/uL (1.4-4.0); Lymphocytes % 13.4 % (21.2-54.2); Mean Corpuscular HGB Conc 33.3 GM/DL (32-36); Mean Corpuscular Volume 90.2 FL (87-102); Mean Platelet Volume 10.5 FL (9.6-12.0); Monocytes % 6.3 % (1.7-12.7); Neutrophils % 77.4 % (38.7-73.9); Platelet Count 262 T/CUMM (130-400); Red Blood Count 4.59 MC/CUMM (3.8-5.5); Red Cell Distribution Width 12.9 % (9.3-17.3); White Blood Count 14.3 T/CUMM (4-12)
[2020-06-18 06:34] LABS: Calcium 8.7 MG/DL (8.5-10.1)
[2020-06-18] MEDS: INSULIN LISPRO 100 UNIT/ML SUBCUT SCH ×7 (08:28→21:21)
[2020-06-18] MEDS: INSULIN GLARGINE 100 UNIT/ML SUBCUT SCH (09:46)
[2020-06-18] MEDS: lisinopriL 20 MG TABLET PO SCH (09:46)
[2020-06-18] MEDS: KETOROLAC 30 MG/1 ML VIAL IV PRN (13:17)
[2020-06-19] MEDS: HYDROmorphone 2 MG/1 ML VIAL IV PRN ×6 (00:15→12:28)
[2020-06-19 05:19] LABS: Basophils % 0.2 % (0.0-0.8); Eosinophils # 0.2 10*3/uL (0.0-0.87); Eosinophils % 1.6 % (0.00-10.9); Hematocrit 40.2 VOL% (42.0-52.0); Hemoglobin 13.4 GM/DL (14.0-18.0); Immature Granulocytes % 0.5 %; Immature Granulocytes Absolute 0.07 #; Lymphocytes # 1.9 10*3/uL (1.4-4.0); Lymphocytes % 12.9 % (21.2-54.2); Mean Corpuscular HGB Conc 33.3 GM/DL (32-36); Mean Corpuscular Volume 88.4 FL (87-102); Mean Platelet Volume 10.2 FL (9.6-12.0); Monocytes % 9.7 % (1.7-12.7); Neutrophils % 75.1 % (38.7-73.9); Platelet Count 263 T/CUMM (130-400); Red Blood Count 4.55 MC/CUMM (3.8-5.5); Red Cell Distribution Width 12.9 % (9.3-17.3); White Blood Count 14.3 T/CUMM (4-12)
[2020-06-19] MEDS ORDERED: KETOROLAC 30 MG/1 ML VIAL IV ONE (08:00)
[2020-06-19] MEDS: INSULIN GLARGINE 100 UNIT/ML SUBCUT SCH (10:32)
[2020-06-19] MEDS: lisinopriL 20 MG TABLET PO SCH (10:33)
[2020-06-19 11:29] VITALS: BP 142/98
[2020-06-19] MEDS: INSULIN LISPRO 100 UNIT/ML SUBCUT SCH ×4 (12:31→15:50)
== END 2020-06-19 15:00 | DRG 476 ==
LOC: N.OR 05:53 → N.SDSINP 05:53 → EDSTATUS 08:30 → N.SDSINP 13:26 → N.3E 14:16
PROVIDERS: ADMIT Orthopaedic Surgery; ATTEND Orthopaedic Surgery